=== PATIENT | male | born 1975 | race African-American/Black ===

== ENCOUNTER 2024-10-11 14:15 | Emergency (ER) | payer BC, OTHER ==
[2024-10-11] MEDS: Ketorolac 30 MG/ML SDV IM ONE (17:15)
[2024-10-11] MEDS: Orphenadrine 60 MG/2 ML Inj IM ONE (17:16)
== END 2024-10-11 17:32 | disposition home or self-care (01) ==
LOC: DL.ED 14:15
DX: M62.830 Muscle spasm of back (principal); M54.2 Cervicalgia; Z88.2 Allergy status to sulfonamides; V49.49XA Driver injured in collision with other motor vehicles in traffic accident, initial encounter
CPT/HCPCS: 72040; 72100; 73521; 96372; 99284; J1885; J2360